=== PATIENT | male | born 1960 | race Asian ===

== ENCOUNTER 2020-03-12 10:05 | Emergency (ER) | payer OTHER ==
[~2020-03-12] VITALS: Ht 157.5 cm; Wt 68.0 kg
[2020-03-12 11:25] LABS: PLATELET COUNT 120 K/uL (142-355)
[2020-03-12 11:32] LABS: POTASSIUM 5.6 mmol/L (3.6-5.2)
[2020-03-12 14:15] VITALS: TEMP 98.9
[2020-03-12 16:54] VITALS: BP 129/71
== END 2020-03-12 16:54 | disposition home or self-care (01) ==
LOC: ED 10:05
PROVIDERS: Family Medicine
DX: J06.9 Acute upper respiratory infection, unspecified (principal); E87.5 Hyperkalemia; R79.89 Other specified abnormal findings of blood chemistry; Z94.0 Kidney transplant status; Z03.818 Encounter for observation for suspected exposure to other biological agents ruled out
CPT/HCPCS: 80053; 85027; 85379; 87502; 87635; 87651; 93005; 99283; Q9963; U0002

== ENCOUNTER 2020-04-14 12:04 | Outpatient (CLI) | payer OTHER ==
[2020-04-14 12:49] LABS: PLATELET COUNT 173 K/uL (142-355)
[2020-04-14 18:44] LABS: POTASSIUM 5.4 mmol/L (3.6-5.2)
== END 2020-04-14 20:26 | disposition home or self-care (01) ==
LOC: LABW 12:04
PROVIDERS: Internal Medicine
DX: N39.0 Urinary tract infection, site not specified (principal); E83.42 Hypomagnesemia; E83.39 Other disorders of phosphorus metabolism; Z94.0 Kidney transplant status; Z79.899 Other long term (current) drug therapy
CPT/HCPCS: 36415; 80053; 80197; 81000; 83735; 84100; 85027; 87088

== ENCOUNTER 2020-04-23 11:32 | Outpatient (CLI) | payer OTHER ==
[2020-04-23 13:11] LABS: PLATELET COUNT 144 K/uL (142-355)
[2020-04-23 13:55] LABS: POTASSIUM 4.3 mmol/L (3.6-5.2)
== END 2020-04-23 19:47 | disposition home or self-care (01) ==
LOC: LABW 11:32
PROVIDERS: ATTEND Internal Medicine
DX: Z94.0 Kidney transplant status (principal); Z79.899 Other long term (current) drug therapy; E83.39 Other disorders of phosphorus metabolism; N39.0 Urinary tract infection, site not specified; E83.42 Hypomagnesemia
CPT/HCPCS: 36415; 80053; 80197; 81000; 83735; 84100; 85027; 87088

== ENCOUNTER 2020-05-11 08:56 | Outpatient (CLI) | payer OTHER ==
[2020-05-11 09:27] LABS: POTASSIUM 5.5 mmol/L (3.6-5.2)
== END 2020-05-11 20:44 | disposition home or self-care (01) ==
LOC: LABW 08:56
PROVIDERS: Internal Medicine
DX: Z94.0 Kidney transplant status (principal); Z79.899 Other long term (current) drug therapy
CPT/HCPCS: 36415; 80048; 80197

== ENCOUNTER 2020-05-17 08:40 | Outpatient (CLI) | payer OTHER ==
[2020-05-17 09:31] LABS: POTASSIUM 4.7 mmol/L (3.6-5.2)
[2020-05-17 09:54] LABS: PLATELET COUNT 139 K/uL (142-355)
== END 2020-05-17 20:26 | disposition home or self-care (01) ==
LOC: LABW 08:40
PROVIDERS: Internal Medicine
DX: Z94.0 Kidney transplant status (principal); Z79.899 Other long term (current) drug therapy
CPT/HCPCS: 36415; 80053; 80197; 81000; 85027

== ENCOUNTER 2020-05-31 08:33 | Outpatient (CLI) | payer OTHER ==
[2020-05-31 09:40] LABS: POTASSIUM 4.9 mmol/L (3.6-5.2)
[2020-05-31 09:49] LABS: PLATELET COUNT 145 K/uL (142-355)
== END 2020-05-31 22:56 | disposition home or self-care (01) ==
LOC: LABW 08:33
PROVIDERS: Internal Medicine
DX: Z94.0 Kidney transplant status (principal); Z79.899 Other long term (current) drug therapy; E83.39 Other disorders of phosphorus metabolism; N39.0 Urinary tract infection, site not specified; E83.42 Hypomagnesemia
CPT/HCPCS: 36415; 80053; 80197; 81000; 83735; 84100; 85027; 87077; 87086; 87088; 87186

== ENCOUNTER 2020-07-03 19:18 | Emergency (ER) | payer OTHER ==
[~2020-07-03] VITALS: Ht 157.5 cm; Wt 78.5 kg
[2020-07-03] MEDS ORDERED: ENVARSUS XR1 MG PO (19:50)
[2020-07-03] MEDS ORDERED: CELLCEPT250 MG PO (19:51)
[2020-07-03] MEDS ORDERED: PREDNISONE5 M1 PO (19:52)
[2020-07-03] MEDS ORDERED: PANTOPRAZOLE 40MG TA PO (19:53)
[2020-07-03] MEDS ORDERED: CARV12.5 PO (19:54)
[2020-07-03] MEDS ORDERED: LIPITOR40 MG PO (19:56)
[2020-07-03] MEDS ORDERED: ASPIRIN 81 LOW81 MG PO (19:56)
[2020-07-03 19:59] LABS: PLATELET COUNT 140 K/uL (142-355)
[2020-07-03] MEDS ORDERED: SENSIPAR30 MG PO (19:59)
[2020-07-03] MEDS ORDERED: AMLODIPINE BESYLATE PO (19:59)
[2020-07-03] MEDS ORDERED: MAGNESIUM400 MG PO (20:00)
[2020-07-03] MEDS ORDERED: BASAGLAR K100 UNIT/M SC (20:02)
[2020-07-03] MEDS ORDERED: HYDRALAZINE25 MG PO (20:03)
[2020-07-03 20:07] LABS: POTASSIUM 5.7 mmol/L (3.6-5.2); SODIUM 135 mmol/L (136-145)
[2020-07-03] MEDS ORDERED: TAMS0.4C PO (20:09)
[2020-07-03 20:15] LABS: PARTIAL THROMBOPLASTIN TIME 24.6 SECONDS (24.5-33.6)
[2020-07-03 21:15] VITALS: BP 156/72; TEMP 98.5
== END 2020-07-03 21:15 | disposition home or self-care (01) ==
LOC: ED 19:18
PROVIDERS: Hospitalist
DX: I50.9 Heart failure, unspecified (principal); Z94.0 Kidney transplant status
CPT/HCPCS: 36415; 80053; 81000; 82550; 83880; 84484; 85027; 85610; 85730; 93005; 96375; 99284; J1940

== ENCOUNTER 2020-07-30 10:33 | Outpatient (CLI) | payer OTHER ==
[~2020-07-30 10:33] MED LIST: AMLODIPINE BESYLATE PO; ASPIRIN 81 LOW81 MG PO; BASAGLAR K100 UNIT/M SC; CARV12.5 PO; CELLCEPT250 MG PO; ENVARSUS XR1 MG PO; HYDRALAZINE25 MG PO; LIPITOR40 MG PO; MAGNESIUM400 MG PO; PANTOPRAZOLE 40MG TA PO; PREDNISONE5 M1 PO; SENSIPAR30 MG PO; TAMS0.4C PO
[2020-07-30 11:07] LABS: POTASSIUM 5.8 mmol/L (3.6-5.2)
[2020-07-30 11:08] LABS: PLATELET COUNT 143 K/uL (142-355)
== END 2020-07-30 23:57 | disposition home or self-care (01) ==
LOC: LABW 10:33
PROVIDERS: Internal Medicine
DX: Z94.0 Kidney transplant status (principal); Z79.899 Other long term (current) drug therapy; E83.39 Other disorders of phosphorus metabolism; N39.0 Urinary tract infection, site not specified; E83.42 Hypomagnesemia
CPT/HCPCS: 36415; 80053; 80197; 81000; 83735; 84100; 85027; 87077; 87086; 87088; 87186

== ENCOUNTER 2020-08-27 10:58 | Outpatient (CLI) | payer OTHER ==
[2020-08-27 11:17] LABS: PLATELET COUNT 134 K/uL (142-355)
[2020-08-27 11:25] LABS: POTASSIUM 4.9 mmol/L (3.6-5.2)
== END 2020-08-27 19:32 | disposition home or self-care (01) ==
LOC: LABW 10:58
PROVIDERS: ATTEND Internal Medicine
DX: Z94.0 Kidney transplant status (principal); Z79.899 Other long term (current) drug therapy; E83.39 Other disorders of phosphorus metabolism; N39.0 Urinary tract infection, site not specified; E83.42 Hypomagnesemia
CPT/HCPCS: 36415; 80053; 80197; 81000; 83735; 84100; 85027; 87086; 87088

== ENCOUNTER 2020-09-10 10:33 | Outpatient (CLI) | payer OTHER ==
[2020-09-10 10:50] LABS: PLATELET COUNT 137 K/uL (142-355)
[2020-09-10 10:58] LABS: POTASSIUM 5.1 mmol/L (3.6-5.2)
== END 2020-09-10 20:04 | disposition home or self-care (01) ==
LOC: LABW 10:33
PROVIDERS: ATTEND Internal Medicine
DX: Z94.0 Kidney transplant status (principal); Z79.899 Other long term (current) drug therapy; N39.0 Urinary tract infection, site not specified
CPT/HCPCS: 36415; 80048; 81000; 85027; 87088

== ENCOUNTER 2020-10-08 16:03 | Outpatient (CLI) | payer OTHER ==
[2020-10-08 17:10] LABS: POTASSIUM 5.7 mmol/L (3.6-5.2)
[2020-10-08 17:13] LABS: PLATELET COUNT 143 K/uL (142-355)
== END 2020-10-08 19:07 | disposition home or self-care (01) ==
LOC: LABW 16:03
PROVIDERS: ATTEND Internal Medicine Nephrology
DX: I13.11 Hypertensive heart and chronic kidney disease without heart failure, with stage 5 chronic kidney disease, or end stage renal disease (principal); N18.2 Chronic kidney disease, stage 2 (mild); Z94.0 Kidney transplant status; N25.81 Secondary hyperparathyroidism of renal origin; E11.21 Type 2 diabetes mellitus with diabetic nephropathy; H54.7 Unspecified visual loss
CPT/HCPCS: 36415; 80053; 82306; 83735; 83970; 84100; 85027

== ENCOUNTER 2020-10-15 09:48 | Outpatient (CLI) | payer OTHER ==
[2020-10-15 10:14] LABS: POTASSIUM 5.4 mmol/L (3.6-5.2)
== END 2020-10-15 23:59 | disposition home or self-care (01) ==
LOC: LABW 09:48
PROVIDERS: ATTEND Internal Medicine Nephrology
DX: E87.5 Hyperkalemia (principal)
CPT/HCPCS: 36415; 80048

== ENCOUNTER 2020-10-23 13:34 | Outpatient (CLI) | payer OTHER | END 2020-10-23 19:10 | disposition home or self-care (01) | LOC: LABW 13:34 | PROVIDERS: ATTEND Internal Medicine | DX: N39.0 Urinary tract infection, site not specified (principal); Z79.899 Other long term (current) drug therapy; Z94.0 Kidney transplant status | CPT/HCPCS: 81000; 87086; 87088 ==

== ENCOUNTER 2020-10-29 09:52 | Outpatient (CLI) | payer OTHER ==
[2020-10-29 10:36] LABS: POTASSIUM 5.2 mmol/L (3.6-5.2)
== END 2020-10-29 22:59 | disposition home or self-care (01) ==
LOC: LABW 09:52
PROVIDERS: ATTEND Internal Medicine
DX: Z94.0 Kidney transplant status (principal); Z79.899 Other long term (current) drug therapy
CPT/HCPCS: 36415; 80053

== ENCOUNTER 2020-11-26 11:27 | Outpatient (CLI) | payer OTHER ==
[2020-11-26 11:49] LABS: PLATELET COUNT 119 K/uL (142-355)
[2020-11-26 12:08] LABS: POTASSIUM 4.8 mmol/L (3.6-5.2)
== END 2020-11-26 20:57 | disposition home or self-care (01) ==
LOC: LABW 11:27
PROVIDERS: ATTEND Internal Medicine
DX: Z94.0 Kidney transplant status (principal); Z79.899 Other long term (current) drug therapy
CPT/HCPCS: 36415; 80053; 80197; 81000; 85027; 87086; 87088

== ENCOUNTER 2020-12-15 08:05 | Outpatient (CLI) | payer OTHER ==
[2020-12-15 08:57] LABS: PLATELET COUNT 129 K/uL (142-355)
[2020-12-15 09:08] LABS: POTASSIUM 5.4 mmol/L (3.6-5.2)
== END 2020-12-15 22:03 | disposition home or self-care (01) ==
LOC: LABW 08:05
PROVIDERS: ATTEND Internal Medicine
DX: E78.49 Other hyperlipidemia (principal); E11.22 Type 2 diabetes mellitus with diabetic chronic kidney disease; Z12.5 Encounter for screening for malignant neoplasm of prostate; Z94.0 Kidney transplant status; Z79.899 Other long term (current) drug therapy; N39.0 Urinary tract infection, site not specified
CPT/HCPCS: 80053; 80061; 80197; 81000; 82043; 82570; 83036; 84153; 85027; 87086; 87088

== ENCOUNTER 2020-12-29 08:59 | Outpatient (CLI) | payer OTHER | END 2020-12-29 22:39 | disposition home or self-care (01) | LOC: LABW 08:59 | PROVIDERS: ATTEND Internal Medicine | DX: E55.9 Vitamin D deficiency, unspecified (principal) | CPT/HCPCS: 36415; 80197 ==